=== PATIENT | female | born 1990 | race Two or more races ===

== ENCOUNTER → 2016-06-29 | Outpatient (CLI) | payer MEDICAID ==
[~2016-06-29] VITALS: Ht 162.6 cm; Wt 65.5 kg
[~2016-06-29] MED LIST: DOCU-30 PO; FERR325T20 PO; IBUP-1222 PO; METH-356 PO; PREN1TAB27 PO
[2016-06-29 13:38] VITALS: BP 112/76
[2016-06-29 14:16] LABS: DAU SCREEN DISCLAIMER
== END | disposition home or self-care (01) ==
LOC: LDOP 13:00
PROVIDERS: ATTEND Specialist
DX: O26.893 Other specified pregnancy related conditions, third trimester (principal); R10.9 Unspecified abdominal pain; O42.92 Full-term premature rupture of membranes, unspecified as to length of time between rupture and onset of labor; O62.9 Abnormality of forces of labor, unspecified; O99.333 Smoking (tobacco) complicating pregnancy, third trimester; F17.200 Nicotine dependence, unspecified, uncomplicated; Z3A.39 39 weeks gestation of pregnancy
CPT/HCPCS: 59025; 80307; 81003; 89060; 99211; G0463; Q0114

== ENCOUNTER 2016-07-01 15:00 | Observation (INO) | payer MEDICAID ==
[~2016-07-01] VITALS: Ht 162.6 cm; Wt 65.5 kg
[~2016-07-01 15:00] MED LIST changes: -DOCU-30 PO; -FERR325T20 PO; -IBUP-1222 PO
[2016-07-01 15:33] VITALS: BP 124/74
[2016-07-01 16:54] LABS: DAU SCREEN DISCLAIMER
[2016-07-01] MEDS ORDERED: NICOTINE 14MG/24 HR PATCH.TD24 TD ONE (20:30)
== END 2016-07-01 21:45 | disposition home or self-care (01) ==
LOC: LDOP 15:00 → LDIP 17:19
PROVIDERS: ADMIT Specialist; ATTEND Specialist
DX: O46.93 Antepartum hemorrhage, unspecified, third trimester (principal); O62.9 Abnormality of forces of labor, unspecified; O26.893 Other specified pregnancy related conditions, third trimester; R35.0 Frequency of micturition; Z3A.39 39 weeks gestation of pregnancy
CPT/HCPCS: 59025; 76815; 80307; 99211; G0378; G0463

== ENCOUNTER 2016-07-01 23:59 | Inpatient (IN) | payer MEDICAID ==
[~2016-07-01] VITALS: Ht 162.6 cm; Wt 65.0 kg
[2016-07-02] MEDS ORDERED: OXYTOCIN 30U/ 0.9% NaCL 500ML 500 ML ONE (00:41)
[2016-07-02] MEDS ORDERED: NEWBORN KIT ONE (00:41)
[2016-07-02] MEDS ORDERED: OXYTOCIN 30U/ 0.9% NaCL 500ML 500 ML IV ONE (00:46)
[2016-07-02] MEDS: D5%-LACTATED RINGERS 1,000 ML IV SCH ×3 (00:46→16:46)
[2016-07-02] MEDS ORDERED: OXYTOCIN 30U/ 0.9% NaCL 500ML 500 ML IV PRN (00:46)
[2016-07-02 01:00] VITALS: BP 126/73
[2016-07-02] MEDS ORDERED: CALCIUM CARBONATE 500 MG TAB.CHEW PO PRN (01:00)
[2016-07-02] MEDS: LACTATED RINGERS 1,000 ML IV SCH ×6 (01:00→18:35)
[2016-07-02] MEDS ORDERED: ONDANSETRON 2MG/ML, 2ML IVPush PRN (01:00)
[2016-07-02] MEDS ORDERED: FENTANYL PF 100 MCG/2ML IV PRN (01:00)
[2016-07-02] MEDS ORDERED: FENTANYL PF 100 MCG/2ML IVPush PRN (01:00)
[2016-07-02 01:32] LABS: HEMOGLOBIN 9.5 g/dL (11.7-16.4)
[2016-07-02] MEDS ORDERED: LIDOCAINE/PF 1.5%-EPI 1:200K, 30ML ONE ×2 (01:59→02:00)
[2016-07-02] MEDS ORDERED: FENTANYL/BUPIV./NS/PF 250 ML EPIDCONT ONE (01:59)
[2016-07-02] MEDS ORDERED: PLEASE ENTER HEIGHT AND WEIGHT MC SCH (02:00)
[2016-07-02] MEDS: FENTANYL/BUPIV./NS/PF 250 ML EPIDCONT SCH ×2 (02:35→23:25)
[2016-07-02] MEDS ORDERED: EPHEDRINE 50 MG/ML, 1ML IVPush PRN (03:00)
[2016-07-02] MEDS ORDERED: NALOXONE 0.4 MG/ML, 1ML IVPush PRN (03:00)
[2016-07-02] MEDS ORDERED: LACTATED RINGERS 1,000 ML IVBOLUS PRN (03:00)
[2016-07-02] MEDS ORDERED: METHADONE 40 MG TABLET.SOL PO ONE ×2 (08:00→08:30)
[2016-07-02] MEDS ORDERED: ONDANSETRON 2MG/ML, 2ML ONE (08:17)
[2016-07-02] MEDS ORDERED: MISOPROSTOL 200 MCG TABLET ONE (15:11)
[2016-07-02] MEDS: OXYTOCIN 30U/ 0.9% NaCL 500ML 500 ML IV SCH (15:12)
[2016-07-02] MEDS ORDERED: METHYLERGONOVINE 0.2 MG/ML IM PRN (15:30)
[2016-07-02] MEDS ORDERED: ACETAMINOPHEN 325 MG TABLET PO PRN (15:30)
[2016-07-02] MEDS ORDERED: MISOPROSTOL 200 MCG TABLET PR PRN (15:30)
[2016-07-02] MEDS ORDERED: DOCUSATE 100 MG CAPSULE PO PRN (15:30)
[2016-07-02] MEDS ORDERED: OXYTOCIN 10 UNITS/ML, 1ML IM PRN (15:30)
[2016-07-02] MEDS ORDERED: IBUPROFEN 600 MG TABLET ONE (15:34)
[2016-07-02] MEDS: IBUPROFEN 600 MG TABLET PO PRN ×2 (15:35→21:57)
[2016-07-02] MEDS: FERROUS GLUCONATE 324 MG TABLET PO SCH (17:00)
[2016-07-02 18:39] VITALS: BP 110/67
[2016-07-02 20:00] VITALS: BP 114/78
[2016-07-03] MEDS: LACTATED RINGERS 1,000 ML IV SCH ×2 (00:46→02:35)
[2016-07-03] MEDS: D5%-LACTATED RINGERS 1,000 ML IV SCH (00:46)
[2016-07-03] MEDS: OXYTOCIN 30U/ 0.9% NaCL 500ML 500 ML IV SCH ×2 (01:12→11:12)
[2016-07-03 01:17] VITALS: BP 103/61
[2016-07-03 04:10] VITALS: BP 113/70
[2016-07-03] MEDS: IBUPROFEN 600 MG TABLET PO PRN (06:23)
[2016-07-03 07:55] VITALS: BP 111/79
[2016-07-03] MEDS: FERROUS GLUCONATE 324 MG TABLET PO SCH (08:11)
[2016-07-03] MEDS ORDERED: PRENATAL VIT/IRON/FA 1 EACH TABLET PO SCH (09:00)
[2016-07-03] MEDS ORDERED: METHADONE 40 MG TABLET.SOL PO SCH (09:00)
[2016-07-03 12:30] VITALS: BP 112/72
[2016-07-03] MEDS ORDERED: IBUP-1222 PO (13:05)
[2016-07-03] MEDS ORDERED: FERR325T20 PO (13:06)
[2016-07-03] MEDS ORDERED: DOCU-30 PO (13:06)
[2016-07-03] MEDS ORDERED: DIPH,PERTUSS(ACELL),TET VAC/PF NC IM-VACC ONE (13:58)
== END 2016-07-03 14:16 | disposition home or self-care (01) | DRG 775 ==
LOC: LDOP 23:59 → LDIP 07-02 00:44 → 2NW 07-02 17:35
PROVIDERS: ADMIT Specialist; ATTEND Specialist
PROC: 10E0XZZ Delivery of Products of Conception, External Approach (ICD-10-PCS; principal; 2016-07-02)
PROC: 10907ZC Drainage of Amniotic Fluid, Therapeutic from Products of Conception, Via Natural or Artificial Opening (ICD-10-PCS; 2016-07-02)
PROC: 0HQ9XZZ Repair Perineum Skin, External Approach (ICD-10-PCS; 2016-07-02)
PROC: 00HU33Z Insertion of Infusion Device into Spinal Canal, Percutaneous Approach (ICD-10-PCS; 2016-07-02)
PROC: 3E0R3CZ (ICD-10-PCS; 2016-07-02)
DX: O99.324 Drug use complicating childbirth (principal); Z37.0 Single live birth; Z3A.39 39 weeks gestation of pregnancy; F11.10 Opioid abuse, uncomplicated; F12.90 Cannabis use, unspecified, uncomplicated; O70.0 First degree perineal laceration during delivery; O99.334 Smoking (tobacco) complicating childbirth; F17.210 Nicotine dependence, cigarettes, uncomplicated
CPT/HCPCS: 36415; 85025; 86850; 86900; 89060; J2405; J3490; J2590; J3010; J7120; Q0114